=== PATIENT | male | born 1970 | race Caucasian/White ===

== ENCOUNTER 2023-04-20 17:04 | Emergency (ER) | payer SELFPAY ==
[~2023-04-20] VITALS: Ht 167.6 cm; Wt 98.0 kg
[2023-04-20 17:10] VITALS: O2SAT 98
[2023-04-20 18:03] LABS: BASOPHILS % 0.7 % (0.0-2.0); EOSINOPHILS % 1.8 % (0.0-5.0); HEMATOCRIT. 40.5 % (42.0-52.0); HEMOGLOBIN. 13.7 g/dL (14.0-18.0); LYMPHOCYTES % 51.7 % (20.0-50.0); MEAN CORPUSCULAR HEMOGLOBIN 30.1 pg (28.0-32.0); MEAN CORPUSCULAR HGB CONC 33.9 g/dL (31.0-37.0); MEAN CORPUSCULAR VOLUME 88.8 fL (80.0-94.0); MEAN PLATELET VOLUME 8.6 fl (7.4-10.4); MONOCYTES % 6.3 % (2.0-8.0); NEUTROPHILS % 39.5 % (40.0-76.0); PLATELET 220 x1000/uL (130-400); RED BLOOD CELL COUNT 4.56 mill/uL (4.7-6.1); RED CELL DISTRIBUTION WIDTH 12.8 % (11.6-14.6); WHITE BLOOD COUNT 5.9 x1000/uL (4.5-11.0)
[2023-04-20 18:14] LABS: CHLORIDE 109 mEq/L (98-107); INDEX HEMOLYSI 1 (1-3); INDEX ICTERIC 1 (1-4); INDEX LIPEMIC 1 (1-3); POTASSIUM 3.7 mEq/L (3.5-5.1); SODIUM 139 mEq/L (136-145)
[2023-04-20 18:15] LABS: PARTIAL THROMBOPLASTIN TIME 24.4 sec (23.4-31.0); PROTHROMBIN TIME 10.8 sec (9.6-11.0)
[2023-04-20] MEDS ORDERED: MORPHINE SULFATE 4 MG/ML CPJ (NOT FOR IM USE) IV ONE (18:15)
[2023-04-20] MEDS ORDERED: ONDANSETRON HCL 4MG/2ML INJ IV ONE (18:15)
[2023-04-20 18:24] LABS: ALANINE AMINOTRANSFERASE 33 IU/L (13-61); ASPARTATE AMINOTRANSFERASE 23 IU/L (15-37); BILIRUBIN TOTAL 0.2 mg/dL (0.1-1.0); CALCIUM 8.4 mg/dL (8.5-10.1); CARBON DIOXIDE 21 mEq/L (21-32); CREATININE 0.8 mg/dL (0.6-1.3); GLUCOSE 123 mg/dL (70-105); NT PRO B-TYPE NATRIURETIC PEP 8 pg/mL (5-125); PROTEIN TOTAL 7.5 g/dL (6.0-8.3); UREA NITROGEN BLOOD 13 mg/dL (7-21)
[2023-04-20] MEDS ORDERED: ACETAMINOPHEN 325MG TABLET PO NR (18:30)
[2023-04-20] MEDS ORDERED: LIDOCAINE HCL 1% 10 MG/ML 5ML VIAL INJ NR (18:45)
[2023-04-20] MEDS ORDERED: IBUP-1525 MT (20:55)
[2023-04-20] MEDS ORDERED: HYDR-4001 MT (20:55)
[2023-04-20 21:30] VITALS: BP 122/77; PULSE 86; RESP 17; TEMP 98.4
== END 2023-04-20 21:42 | disposition home or self-care (01) ==
LOC: ER 17:04
DX: R68.84 Jaw pain (principal); E11.9 Type 2 diabetes mellitus without complications
CPT/HCPCS: 80053; 83880; 85025; 85610; 85730; 36415; 71045; 70450; 70486; 93005; 12013; 99285; J3490; Z7610 ×5; J2270; J2405